=== PATIENT | male | born 1975 | race Caucasian/White ===

== ENCOUNTER → 2017-02-02 | Outpatient (CLI) | payer OTHER | LOC: LAB 10:19 | DX: F41.9 Anxiety disorder, unspecified (principal) ==

== ENCOUNTER 2020-10-27 08:44 | Emergency (ER) | payer OTHER ==
[2020-10-27] MEDS ORDERED: ZYRTEC10 M3 PO (08:56)
[2020-10-27] MEDS ORDERED: ALPRAZOLAM0.5 MG PO (08:57)
[2020-10-27 09:25] LABS: EOS # 0.3 (0.04-0.40); EOS % 3.6 % (0.0-4.0); HEMATOCRIT 47.7 % (42.0-52.0); HEMOGLOBIN 15.9 g/dL (13.5-18.0); LYMPH# 1.9 (1.50-4.00); MEAN CELL VOLUME 89 fl (78-100); MEAN CORPUSCULAR HEMOGLOBIN 30 pg (27-31); MEAN CORPUSCULAR HGB CONC 33 g/dL (33-37); MONO # 0.7 (0.20-0.80); NEU # 4.1 (1.40-6.50); PLATELET COUNT 270 K/mm3 (130-400); RED BLOOD COUNT 5.38 M/mm3 (4.20-5.60); RED CELL DISTRIBUTION WIDTH 13.2 % (11.5-14.5)
[2020-10-27 09:35] LABS: ALBUMIN 4.5 g/dL (3.5-5.0)
[2020-10-27 09:36] LABS: POTASSIUM 4.5 mmol/L (3.5-5.1)
[2020-10-27 09:37] LABS: CALCIUM 9.3 mg/dL (8.3-10.5)
[2020-10-27 09:38] LABS: TOTAL PROTEIN 7.3 g/dL (6.4-8.3)
[2020-10-27 09:40] LABS: TOTAL BILIRUBIN 0.2 mg/dL (0.2-1.2)
[2020-10-27 10:23] LABS: D-DIMER 0.19 mg/L FEU (0.15-0.50)
[2020-10-27 10:24] LABS: URINE APPEARANCE CLEAR; URINE BILIRUBIN NEGATIVE (NEGATIVE); URINE BLOOD NEGATIVE (NEGATIVE); URINE COLOR YELLOW; URINE GLUCOSE NEGATIVE (NEGATIVE); URINE KETONE NEGATIVE (NEGATIVE); URINE LEUKOCYTE ESTERASE NEGATIVE (NEGATIVE); URINE NITRATE NEGATIVE (NEGATIVE); URINE PROTEIN(semi-quant) NEGATIVE (NEGATIVE); URINE UROBILINOGEN NORMAL (NORMAL); URINE WBC 0-1 /hpf (0-3)
[2020-10-27 12:33] VITALS: BP 125/72
== END 2020-10-27 12:37 | disposition home or self-care (01) ==
LOC: ED 08:44
PROVIDERS: Family Medicine
DX: I49.2 Junctional premature depolarization (principal); F41.9 Anxiety disorder, unspecified; F17.210 Nicotine dependence, cigarettes, uncomplicated

== ENCOUNTER → 2020-10-30 | Outpatient (CLI) | payer OTHER ==
[2020-10-27 12:33] VITALS: BP 125/72
[~2020-10-30] MED LIST: ALPRAZOLAM0.5 MG PO; ZYRTEC10 M3 PO
== END ==
LOC: VAS 10:51
DX: I49.9 Cardiac arrhythmia, unspecified (principal)